=== PATIENT | male | born 1980 ===

== ENCOUNTER 2017-01-14 20:45 | Observation (INO) | payer BC ==
[2017-01-14] MEDS ORDERED: Iohexol 240 (50 ml) PO ONE (22:14)
[2017-01-14] MEDS ORDERED: Sodium Chloride 0.9% 1,000 ML IV STA (22:16)
--- NOTE | 2017-01-14 22:29 | ED PDOC ---
HPI: Abdomen Time Seen by Provider: 01/14/17 21:18 Chief Complaint (Nursing): Abdominal Pain Chief Complaint (Provider): Upper Abdominal Pain History Per: Patient History/Exam Limitations: no limitations Onset/Duration Of Symptoms: Days (3 days) Outside of [place] travel?: No Current Symptoms Are (Timing): Constant Severity: Moderate Location Of Pain/Discomfort: Epigastric Associated Symptoms: Constipation. denies: Fever, Vomiting Alleviating Factors: OTC Meds (Motrin, Omeprazole) Additional Complaint(s): Lucho Whitehead is a 36 year old male, with no pertinent past medical history, who presents to the emergency department for the evaluation of constant, upper abdominal pain, localized to his epigastric region, that the patient has been experiencing over the past 3 days. Patient has been taking Motrin and Omeprazole , which has provided mild relief. Associated constipation is currently present. Denies a fever or vomiting. PMD: Sohail Carey Past Medical History Reviewed: Historical Data, Nursing Documentation, Vital Signs Vital Signs: Last Vital Signs Temp 98.3 F 01/15/17 07:59 Pulse 71 01/15/17 07:59 Resp 18 01/15/17 07:59 BP 153/82 H 01/15/17 07:59 Pulse Ox 98 01/15/17 07:59 - Medical History PMH: HTN - Surgical History Surgical History: No Surg Hx - Family History Family History: States: No Known Family Hx - Social History Current smoker - smoking cessation education provided: No Ex-Smoker (has not smoked in the last 12 months): No Alcohol: None Drugs: Denies - Home Medications Home Medications: Ambulatory Orders Medication Instructions Recorded Ergocalciferol (Vitamin D2) 50,000 unit PO QWK 01/15/17 [Vitamin D2] Omeprazole [Omeprazole] 40 mg PO DAILY 01/15/17 amLODIPine [Norvasc] 5 mg PO DAILY 01/15/17 - Allergies Allergies/Adverse Reactions: Allergies Allergy/AdvReac Type Severity Reaction Status Date / Time No Known Allergies Allergy Verified 01/14/17 21:12 Review of Systems ROS Statement: Except As Marked, All Systems Reviewed And Found Negative Constitutional: Negative for: Fever Gastrointestinal: Positive for: Abdominal Pain (upper), Constipation. Negative for: Vomiting Physical Exam - Reviewed Nursing Documentation Reviewed: Yes Vital Signs Reviewed: Yes - Physical Exam Appears: Positive for: Non-toxic, No Acute Distress, Uncomfortable Head Exam: Positive for: ATRAUMATIC, NORMOCEPHALIC Skin: Positive for: Normal Color, Warm, Dry Cardiovascular/Chest: Positive for: Regular Rate, Rhythm. Negative for: Murmur Respiratory: Positive for: Normal Breath Sounds. Negative for: Respiratory Distress Gastrointestinal/Abdominal: Positive for: Normal Exam, Soft, Tenderness ( epigastric), Distended (mild, upper abdomen) Back: Positive for: Normal Inspection. Negative for: L CVA Tenderness, R CVA Tenderness Neurologic/Psych: Positive for: Alert, Oriented - Laboratory Results Result Diagrams: 01/15/17 07:00 01/14/17 22:40 - ECG O2 Sat by Pulse Oximetry: 100 (RA) Pulse Ox Interpretation: Normal Medical Decision Making Medical Decision Makin:18 Initial Impression: Abdominal pain Differential Diagnoses include, but are not limited to, small bowel obstruction , acute cholecystitis, pancreatitis, gastritis, other conditions are also considered. Initial Plan: * CT Abdomen & Pelvis * Electrocardiogram * Complete Blood Count * Comprehensive Metabolic Panel * Lipase * Iohexol 50 ml PO * Sodium Chloride 0.9% 1,000 ml IV at 1,000 mls/hr * Reevaluation Scribe Attestation: Documented by Vaibhav Ann, acting as a scribe for Carl Zambrano MD. Provider Scribe Attestation: All medical record entries made by the Scribe were at my direction and personally dictated by me. I have reviewed the chart and agree that the record accurately reflects my personal performance of the history, physical exam, medical decision making, and the department course for this patient. I have also personally directed, reviewed, and agree with the discharge instructions and disposition. Disposition - Clinical Impression Clinical Impression: Cholecystitis - Patient ED Disposition Is Patient to be Admitted: Transfer of Care Counseled Patient/Family Regarding: Studies Performed, Diagnosis - Disposition Disposition Time: 00:05 Condition: FAIR Patient Signed Over To: Walter Villafuerte
[2017-01-14] MEDS ORDERED: Iohexol 240 (50 ml) ONE (22:41)
[2017-01-14 22:53] LABS: BASO # 0.1 K/uL (0.0-0.2); BASO % 0.8 % (0.0-2.0); EOS # 0.3 K/uL (0.0-0.7); EOS % 1.9 % (0.0-4.0); HEMATOCRIT 40.9 % (35.0-51.0); LYMPH # 2.8 K/uL (1.0-4.3); LYMPH % 20.2 % (20.0-40.0); MEAN CELL VOLUME 88.5 fl (80.0-94.0); MEAN CORPUSCULAR HEMOGLOBIN 29.6 pg (27.0-31.0); MEAN CORPUSCULAR HGB CONC 33.5 g/dL (33.0-37.0); MEAN PLATELET VOLUME 9.3 fl (7.2-11.7); MONO # 0.9 K/uL (0.0-0.8); MONO % 6.3 % (0.0-10.0); NEUT # 9.9 K/uL (1.8-7.0); NEUT % 70.8 % (50.0-75.0); NRBC % 0.1 % (0.0-0.0); RED CELL DISTRIBUTION WIDTH 12.7 % (11.5-14.5)
[2017-01-14 23:02] LABS: ALB/GLOB RATIO 1.3 (1.0-2.1); ALKALINE PHOSPHATASE 69 U/L (38-126); ALT/SGPT 48 U/L (21-72); AST/SGOT 51 U/L (17-59); BILIRUBIN,TOTAL 0.5 mg/dl (0.2-1.3); BLOOD UREA NITROGEN 10 mg/dl (9-20); CALCIUM 9.5 mg/dL (8.4-10.2); CARBON DIOXIDE 26 mmol/L (22-30); CHLORIDE 103 mmol/L (98-107); GFR AFRICAN-AMERICAN > 60; GLUCOSE,RANDOM 95 mg/dL (75-110); LIPASE 43 U/L (23-300); SODIUM 142 mmol/l (132-148); TOTAL PROTEIN 8.5 G/DL (6.3-8.2)
--- NOTE | 2017-01-15 00:48 | ED PDOC ---
- Laboratory Results Result Diagrams: 01/14/17 22:40 01/14/17 22:40 - ECG O2 Sat by Pulse Oximetry: 100 (RA) Pulse Ox Interpretation: Normal Medical Decision Making Medical Decision Making: Time:1205 Transfer of Care from Carl Zambrano M.D. pending Cat Scan 0116:Abdomen/Pelvis CT results reviewed by me, c/w acute cholecystitis 0139: Abdominal Ultrasound reviewed by me, c/w acute cholecystitis 0318: Re-Check. PT was feeling better than when he arrived to the ED but the pain is now starting to return 0320:Consulted with Bridges Supervisor who will evaluate the PT in the morning 0323: Consulted with Dr. Mihir Plummer (Head Rigger) who will accept patient for admission Scribe Attestation: Documented by Aniya Shea, acting as a scribe for Walter Villafuerte M.D., MD Scribe Attestation: All medical record entries made by the Scribe were at my direction and personally dictated by me. I have reviewed the chart and agree that the record accurately reflects my personal performance of the history, physical exam, medical decision making, and the department course for this patient. I have also personally directed, reviewed, and agree with the discharge instructions and disposition. Disposition Discussed With : Mihir Plummer Comment: Will accept patient for admission Doctor Will See Patient In The: Hospital - Clinical Impression Clinical Impression: Cholecystitis - POA Present On Arrival: None - Disposition Disposition: Hospitalized as Observation Patient Disposition Time: 03:30 Condition: STABLE - PA / [employer] / Resident Statement / has reviewed & agrees with the documentation as recorded.
[2017-01-15] MEDS ORDERED: Iohexol 300 100 ML IJ ONE (00:56)
[2017-01-15] MEDS ORDERED: Sodium Chloride 0.9% 50 ML IV ONE (00:57)
[2017-01-15] MEDS ORDERED: Piperacillin/Tazobact 3.375 gm Inj IVPB ONE (03:13)
[2017-01-15] MEDS ORDERED: Piperacillin/Tazobact 3.375 GM in Sodium Chloride 0.9% 100 ML IVPB STA (03:16)
[2017-01-15] MEDS ORDERED: Sodium Chloride 0.9% 1,000 ML IV STA (03:16)
[2017-01-15 05:39] LABS: RBC URINE 2 /hpf (0-3); URINE BILIRUBIN NEGATIVE (NEGATIVE); URINE BLOOD NEGATIVE (NEGATIVE); URINE COLOR YELLOW (YELLOW); URINE GLUCOSE (UA) NEG (Normal); URINE KETONE NEGATIVE (NEGATIVE); URINE LEUKOCYTE ESTERASE NEG Leu/uL (Negative); URINE PROTEIN NEGATIVE (NEGATIVE); WBC URINE 1 /hpf (0-5)
[2017-01-15] MEDS ORDERED: Lactated Ringer's 1,000 ML IV SCH ×2 (05:45→14:15)
[2017-01-15 06:15] LABS: PARTIAL THROMBOPLASTIN TIME 32.6 Seconds (25.6-37.1)
[2017-01-15] MEDS: Dextrose 5%/0.45% NS 1,000 ML IV SCH ×2 (06:44→17:00)
[2017-01-15 08:21] LABS: HEMATOCRIT 37.1 % (35.0-51.0); MEAN CELL VOLUME 88.1 fl (80.0-94.0); MEAN CORPUSCULAR HGB CONC 34.1 g/dL (33.0-37.0); RED CELL DISTRIBUTION WIDTH 12.8 % (11.5-14.5); WHITE BLOOD COUNT 10.7 K/uL (4.8-10.8)
--- NOTE | 2017-01-15 08:52 | CT ---
PROCEDURE: CT Abdomen and Pelvis with contrast HISTORY: abdominal pain COMPARISON: None. TECHNIQUE: Contrast dose: 95 mL Omnipaque 300 Radiation dose: Total exam DLP = 1039.65 mGy-cm. This CT exam was performed using one or more of the following dose reduction techniques: Automated exposure control, adjustment of the mA and/or kV according to patient size, and/or use of iterative reconstruction technique. FINDINGS: LOWER THORAX: Unremarkable. LIVER: Unremarkable. No mass or biliary ductal dilatation. GALLBLADDER AND BILE DUCTS: Cholelithiasis. Mural thickening. Questionable pericholecystic fat stranding. Findings are concerning for cholecystitis but not diagnostic. No evidence of choledocholithiasis. PANCREAS: Unremarkable. No gross lesion or ductal dilatation. SPLEEN: Unremarkable. ADRENALS: Unremarkable. No mass. KIDNEYS AND URETERS: Unremarkable. No hydronephrosis. No solid mass. VASCULATURE: Unremarkable. No aortic aneurysm. BOWEL: Unremarkable. No obstruction. No gross mural thickening. APPENDIX: Normal appendix. PERITONEUM: Trace fluid extending from gallbladder about the lateral aspect of the 2nd duodenum. Nonspecific. Best demonstrated on series 601, image 65). Bilateral inguinal hernias containing only mesenteric fat no bowel. LYMPH NODES: Unremarkable. No enlarged lymph nodes. BLADDER: Unremarkable. REPRODUCTIVE: Normal prostate BONES: No acute fracture. OTHER FINDINGS: None. IMPRESSION: Cholelithiasis with mural thickening of the gallbladder and pericholecystic fluid/stranding. Findings concerning for acute cholecystitis. No other significant abnormality is identified. Preliminary interpretation of this examination was reported by [facility] at 1:32 a.m. on 01/15/2017. There is concurrence of this report with the preliminary interpretation.
--- NOTE | 2017-01-15 08:59 | US ---
HISTORY: r/o cholecystitis COMPARISON: CT abdomen/ pelvis 01/15/2017 TECHNIQUE: Sonographic evaluation of the right upper quadrant of the abdomen. FINDINGS: LIVER: Measures 16.1 cm in length. Diffusely increased echogenicity of the liver parenchyma. Consistent with fatty infiltration. No focal mass. No biliary dilatation. Smooth contour. GALLBLADDER: Cholelithiasis. Thickened gallbladder wall up to 8 mm. No pericholecystic fluid appreciated. Negative sonographic Mitchell sign. Findings are equivocal for cholecystitis in the absence of a positive sonographic Mitchell sign. COMMON BILE DUCT: Measures 4 mm. No stones. No dilatation. PANCREAS: Could not be visualized due to overlying bowel gas obscuring the region of interest. RIGHT KIDNEY: Measures 10.3 cm in length. Normal echogenicity. No calculus, mass, or hydronephrosis. AORTA: No aneurysmal dilatation. IVC: Unremarkable. OTHER FINDINGS: None . IMPRESSION: Cholelithiasis and thickened gallbladder wall. Negative sonographic Mitchell sign. Findings are equivocal for cholecystitis. No biliary obstruction. Fatty infiltration of the liver. Otherwise unremarkable. Preliminary interpretation of this examination was reported by [facility] at 3:06 a.m. on 01/15/2017. There is concurrence of this report with the preliminary interpretation.
[2017-01-15] MEDS: Piperacillin/Tazobact 3.375 GM in Sodium Chloride 0.9% 100 ML IVPB SCH ×3 (09:09→21:32)
--- NOTE | 2017-01-15 09:19 | CP.PCM.CON ---
History of Present Illness - History of Present Illness History of Present Illness: 36 year old male presents with one week of epigsatric abdominal pain, not improved with motrin or maalox. Saw PMD who prescribed PPI, but was unable to tolerate pain and came to ER. Pain partially relieved with medication, but recurs; denies vomiting, diarrhea, sick contacts Review of Systems - Review of Systems All systems: reviewed and no additional remarkable complaints except - Constitutional Constitutional: absent: As Per HPI, Anorexia, Chills, Daytime Sleepiness, Excessive Sweating, Fatigue, Fever, Frequent Falls, Headache, Increased Appetite , Lethargy, Malaise, Night Sweats, Snoring, Sleep Apnea, Weight Gain, Weight Loss, Weakness, Other - Cardiovascular Cardiovascular: absent: Chest Pain, Dyspnea, Irregular Heart Rhythm - Respiratory Respiratory: absent: Cough, Dyspnea - Gastrointestinal Gastrointestinal: Abdominal Pain. absent: Coffee Ground Emesis, Loose Stools - Genitourinary Genitourinary: absent: Change in Urinary Stream, Difficulty Urinating - Musculoskeletal Musculoskeletal: absent: Arthralgias, Deformity, Limited Range of Motion - Integumentary Integumentary: absent: Pruritus, Rash, Jaundice Past Patient History - Tetanus Immunizations Tetanus Immunization: Unknown - Past Medical History & Family History Past Medical History?: Yes - Past Social History Smoking Status: Never Smoked Alcohol: Occasional Drugs: Denies - CARDIAC Hx Cardiac Disorders: Yes Hx Hypertension: Yes (recent diagnosis from PCP x 2 days) - PULMONARY Hx Respiratory Disorders: No - NEUROLOGICAL Hx Neurological Disorder: No - HEENT Hx HEENT Problems: No - RENAL Hx Chronic Kidney Disease: No - ENDOCRINE/METABOLIC Hx Endocrine Disorders: No - HEMATOLOGICAL/ONCOLOGICAL Hx Blood Disorders: No - INTEGUMENTARY Hx Dermatological Problems: No - MUSCULOSKELETAL/RHEUMATOLOGICAL Hx Musculoskeletal Disorders: No Hx Falls: No - GASTROINTESTINAL Hx Gastrointestinal Disorders: No - GENITOURINARY/GYNECOLOGICAL Hx Genitourinary Disorders: No - PSYCHIATRIC Hx Psychophysiologic Disorder: No Hx Substance Use: No - SURGICAL HISTORY Hx Surgeries: No - ANESTHESIA Hx Anesthesia: No Hx Anesthesia Reactions: No Has any member of the family had a problem w/ anesthesia?: No Meds Allergies/Adverse Reactions: Allergies Allergy/AdvReac Type Severity Reaction Status Date / Time No Known Allergies Allergy Verified 01/14/17 21:12 - Medications Medications: Current Medications Piperacillin Sod/Tazobactam (Sod 3.375 gm/ Sodium Chloride) 100 mls @ 100 mls/ hr IVPB Q6 [facility] Last Admin: 01/15/17 09:09 Dose: 100 mls/hr Dextrose/Sodium Chloride (Dextrose 5%/0.45% Ns 1000 Ml) 1,000 mls @ 100 mls/hr IV .Q10H [facility] Stop: 01/16/17 05:53 Last Admin: 01/15/17 06:44 Dose: 100 mls/hr Morphine Sulfate (Morphine) 2 mg IVP Q4 PRN PRN Reason: Pain, moderate (4-7) Morphine Sulfate (Morphine) 4 mg IVP Q4 PRN PRN Reason: Pain, severe (8-10) Last Admin: 01/15/17 06:18 Dose: 4 mg Ondansetron HCl (Zofran Inj) 4 mg IVP Q4 PRN PRN Reason: Nausea/Vomiting Physical Exam - Constitutional Additional comments: Uncomfortable with abdominal pain - Head Exam Head Exam: ATRAUMATIC, NORMOCEPHALIC - Eye Exam Eye Exam: Normal appearance. absent: Scleral icterus Pupil Exam: PERRL - ENT Exam ENT Exam: Mucous Membranes Moist - Neck Exam Neck exam: Positive for: Full Rom. Negative for: Lymphadenopathy - Respiratory Exam Respiratory Exam: NORMAL BREATHING PATTERN - Cardiovascular Exam Cardiovascular Exam: REGULAR RHYTHM - GI/Abdominal Exam GI & Abdominal Exam: Firm, Normal Bowel Sounds. absent: Distended Additional comments: Epigastric tenderness, no mass - Rectal Exam Rectal Exam: NORMAL INSPECTION - Exam Exam: NORMAL INSPECTION - Extremities Exam Extremities exam: Positive for: full ROM, normal inspection - Neurological Exam Neurological exam: Alert, Oriented x3 Results - Vital Signs Recent Vital Signs: Last Vital Signs Temp 98.3 F 01/15/17 07:59 Pulse 71 01/15/17 07:59 Resp 18 01/15/17 07:59 BP 153/82 H 01/15/17 07:59 Pulse Ox 98 01/15/17 07:59 - Labs Result Diagrams: 01/15/17 07:00 01/14/17 22:40 Labs: Laboratory Results - last 24 hr 01/15/17 01/15/17 01/15/17 04:01 04:32 05:20 WBC RBC Hgb Hct MCV MCH MCHC RDW Plt Count PT 11.5 INR 1.0 APTT 32.6 Urine Color Urine Clarity Urine pH Ur Specific [place] Urine Protein Urine Glucose (UA) Urine Ketones Urine Blood Urine Nitrate Urine Bilirubin Urine Urobilinogen Ur Leukocyte Esterase Urine RBC (Auto) Urine Microscopic WBC Ur Squamous Epith Cells Blood Type A POSITIVE Blood Type Confirm A POSITIVE Antibody Screen Negative BBK History Checked No verified bt 01/15/17 01/15/17 05:22 07:00 WBC 10.7 RBC 4.21 L Hgb 12.6 Hct 37.1 MCV 88.1 MCH 30.0 MCHC 34.1 RDW 12.8 Plt Count 231 PT INR APTT Urine Color Yellow Urine Clarity Clear Urine pH 6.0 Ur Specific [place] 1.010 Urine Protein Negative Urine Glucose (UA) Neg Urine Ketones Negative Urine Blood Negative Urine Nitrate Negative Urine Bilirubin Negative Urine Urobilinogen 4.0 Ur Leukocyte Esterase Neg Urine RBC (Auto) 2 Urine Microscopic WBC 1 Ur Squamous Epith Cells 1 Blood Type Blood Type Confirm Antibody Screen BBK History Checked - Imaging and Cardiology CT scan - abdomen Additional comment: thickened gallbladder with stones, possible pericholecystic fluid US - abdomen Status: Report reviewed by me (GB wall thickening, cholelithiasis; CBD 4mm) Assessment & Plan (1) Cholecystitis Status: Acute Priority: High Onset Date: ~01/10/17 Comment: Not responding to analgesics, pain recurs after short interval. Will schedule for laparoscopic cholecystectomy today. - Date & Time Date: 01/15/17 Time: 09:26
[2017-01-15] MEDS ORDERED: Piperacillin/Tazobact 3.375 GM in Sodium Chloride 0.9% 100 ML IVPB SCH (10:00)
[2017-01-15] MEDS ORDERED: Propofol 10 mg/ml Inj (20 ML) ONE (12:35)
[2017-01-15] MEDS ORDERED: Midazolam 2 MG/2 ML VIAL ONE (12:36)
[2017-01-15] MEDS ORDERED: Succinylcholine 200 mg/10 ml Inj IV ONE (12:36)
[2017-01-15] MEDS ORDERED: Rocuronium 10 mg/ml (5 ml) ONE (12:37)
[2017-01-15] MEDS ORDERED: Lidocaine Hydrochloride 5 ML INJ ONE ×2 (12:38)
[2017-01-15] MEDS ORDERED: Lactated Ringer's 1,000 ML IV ONE (12:45)
[2017-01-15] MEDS ORDERED: Neostigmine Methylsulfate 3mg/3ml Syringe IV ONE (13:29)
--- NOTE | 2017-01-15 13:36 | RAD ---
HISTORY: cholecystitis COMPARISON: No prior. TECHNIQUE: Chest PA and lateral FINDINGS: LUNGS: No active pulmonary disease. PLEURA: No significant pleural effusion identified. No pneumothorax apparent. CARDIOVASCULAR: Normal. OSSEOUS STRUCTURES: No significant abnormalities. VISUALIZED UPPER ABDOMEN: Normal. OTHER FINDINGS: None. IMPRESSION: No active disease.
[2017-01-15] MEDS ORDERED: Lactated Ringer's 500 ML IV ONE (14:00)
--- NOTE | 2017-01-15 14:16 | PCM.SURG1 ---
Surgeon's Initial Post Op Note - Surgeon's Notes Surgeon: Dr. Jennifer Madrid Diet Counselor: Radha Joe, PGY1 Pre-Operative Diagnosis: Acute cholecystitis Operative Findings: Same Post-Operative Diagnosis: same Operation Performed: Laparoscopic cholecystectomy Specimen/Specimens Removed: gall bladder Estimated Blood Loss: EBL {In ML}: 20 Date of Surgery/Procedure: 01/15/17 Time of Surgery/Procedure: 12:45
[2017-01-15] MEDS: HYDROmorphone 0.5 mg/0.5 ml ISec IVP PRN ×2 (15:30→15:45)
--- NOTE | 2017-01-15 15:30 | CP.PCM.HP ---
History of Present Illness - History of Present Illness History of Present Illness: CC: Abdominal pain. 36 y/o M, admitted to [facility] after evaluation of Abdominal pain, onset DOA. Pt came to hospital c/o of severe upper abdomen pain epigastric area, pain was constant, sharp, aching type, severe intensity 9:10 , Pt taking analgesic Rx by his PMD with no relief. Worsening symptom: Constipation. Pt with recent PMHx: HTN. Pt denied: Fever, chills, n/v/d, dizziness, LOC, CP, SOB, cough, urinary symptoms, sick contact, recent travel. CT abd/Pelv showed: Cholelithiasis, thickening of the gallbladder and pericholecystic fluid, finding concern for acute Cholecystitis EKG: Sinus tachycardia. Abdominal .U-S showed: Cholelithiasis. Present on Admission - Present on Admission Any Indicators Present on Admission: No Review of Systems - Constitutional Constitutional: Other (negative) - EENT Eyes: Other (negative) Ears: Other (negative) Nose/Mouth/Throat: Other (negative) - Cardiovascular Cardiovascular: Other (negative) - Respiratory Respiratory: Other (negative) - Gastrointestinal Gastrointestinal: Abdominal Pain, Constipation - Genitourinary Genitourinary: Other (negative) - Musculoskeletal Musculoskeletal: Other (negative) - Integumentary Integumentary: Other (negative) - Neurological Neurological: Other (negative) - Psychiatric Psychiatric: Other (negative) - Endocrine Endocrine: Other (negative) - Hematologic/Lymphatic Hematologic: Other (negative) Past Patient History - Tetanus Immunizations Tetanus Immunization: Unknown - Past Medical History & Family History Past Medical History?: Yes Pertinent Family History: Unknown - Past Social History Alcohol: None Drugs: Denies Home Situation {Lives}: Alone - CARDIAC Hx Cardiac Disorders: Yes Hx Hypertension: Yes - PULMONARY Hx Respiratory Disorders: No - NEUROLOGICAL Hx Neurological Disorder: No - HEENT Hx HEENT Problems: No - RENAL Hx Chronic Kidney Disease: No - ENDOCRINE/METABOLIC Hx Endocrine Disorders: No - HEMATOLOGICAL/ONCOLOGICAL Hx Blood Disorders: No - INTEGUMENTARY Hx Dermatological Problems: No - MUSCULOSKELETAL/RHEUMATOLOGICAL Hx Musculoskeletal Disorders: No Hx Falls: No - GASTROINTESTINAL Hx Gastrointestinal Disorders: No - GENITOURINARY/GYNECOLOGICAL Hx Genitourinary Disorders: No - PSYCHIATRIC Hx Psychophysiologic Disorder: No Hx Substance Use: No - SURGICAL HISTORY Hx Surgeries: No - ANESTHESIA Hx Anesthesia: No Hx Anesthesia Reactions: No Has any member of the family had a problem w/ anesthesia?: No Meds Allergies/Adverse Reactions: Allergies Allergy/AdvReac Type Severity Reaction Status Date / Time No Known Allergies Allergy Verified 01/14/17 21:12 Physical Exam - Constitutional Appears: In Acute Distress (mild) - Head Exam Head Exam: NORMAL INSPECTION - Eye Exam Eye Exam: PERRL - ENT Exam ENT Exam: Normal Oropharynx - Neck Exam Neck exam: Positive for: Normal Inspection - Respiratory Exam Respiratory Exam: NORMAL BREATHING PATTERN - Cardiovascular Exam Cardiovascular Exam: REGULAR RHYTHM - GI/Abdominal Exam GI & Abdominal Exam: Normal Bowel Sounds, Tenderness (epigastric area). absent : Distended, Guarding, Rebound - Extremities Exam Extremities exam: Positive for: normal inspection - Back Exam Back exam: NORMAL INSPECTION - Neurological Exam Neurological exam: Alert, Oriented x3 Additional comments: No motor sensory deficit. - Psychiatric Exam Psychiatric exam: Normal Mood - Skin Skin Exam: Normal Color, Warm Results - Vital Signs Recent Vital Signs: Last Vital Signs Temp 97.1 F L 01/15/17 14:15 Pulse 65 01/15/17 15:15 Resp 18 01/15/17 15:15 BP 165/88 H 01/15/17 15:15 Pulse Ox 100 01/15/17 15:15 reviewed Nelson.[email or web address] - Labs Result Diagrams: 01/15/17 07:00 01/14/17 22:40 Labs: Laboratory Results - last 24 hr 01/15/17 01/15/17 01/15/17 04:01 04:32 05:20 WBC RBC Hgb Hct MCV MCH MCHC RDW Plt Count PT 11.5 INR 1.0 APTT 32.6 Urine Color Urine Clarity Urine pH Ur Specific [place] Urine Protein Urine Glucose (UA) Urine Ketones Urine Blood Urine Nitrate Urine Bilirubin Urine Urobilinogen Ur Leukocyte Esterase Urine RBC (Auto) Urine Microscopic WBC Ur Squamous Epith Cells Blood Type A POSITIVE Blood Type Confirm A POSITIVE Antibody Screen Negative BBK History Checked No verified bt 01/15/17 01/15/17 05:22 07:00 WBC 10.7 RBC 4.21 L Hgb 12.6 Hct 37.1 MCV 88.1 MCH 30.0 MCHC 34.1 RDW 12.8 Plt Count 231 PT INR APTT Urine Color Yellow Urine Clarity Clear Urine pH 6.0 Ur Specific [place] 1.010 Urine Protein Negative Urine Glucose (UA) Neg Urine Ketones Negative Urine Blood Negative Urine Nitrate Negative Urine Bilirubin Negative Urine Urobilinogen 4.0 Ur Leukocyte Esterase Neg Urine RBC (Auto) 2 Urine Microscopic WBC 1 Ur Squamous Epith Cells 1 Blood Type Blood Type Confirm Antibody Screen BBK History Checked reviewed J.P. - EKG Data EKG comments: Reviewed J.P. - Imaging and Cardiology US - abdomen Status: Report reviewed by me (MandeepP.) CT scan - pelvis Status: Report reviewed by me (Nelson.P.) CT scan - abdomen Status: Report reviewed by me (Nelson.P.) Assessment & Plan (1) Acute cholecystitis Status: Acute Priority: High - Assessment and Plan (Free Text) Plan: For Senia Lap today. - Date & Time Date: 01/15/17 Time: 11:55
--- NOTE | 2017-01-15 17:00 | CARD ---
APPROVED REPORT EKG Measurement Heart [id number] [id number] <Conclusion> Sinus bradycardia Otherwise normal ECG
--- NOTE | 2017-01-15 19:45 | OP ---
PROCEDURE DATE: 01/15/2017 SURGEON: Dr. Madrid. PHLEBOTOMY MANAGER: Dr. Joe. ANESTHESIA: General, Dr. Lozano. PREOPERATIVE DIAGNOSIS: Acute cholecystitis. POSTOPERATIVE DIAGNOSIS: Acute cholecystitis. PROCEDURE: Laparoscopic cholecystectomy. DESCRIPTION OF OPERATION: With the patient in the supine position under adequate general anesthesia, the abdomen was prepped and draped in the usual sterile manner. Veress needle puncture was performe d in the umbilicus with insufflation to 15 cm water pressure of CO2 and a 10 mm laparoscopic trocar w as inserted via an infraumbilical incision. Under direct vision, additional trocars were inserted in the epigastrium and right costal margin. The gallbladder was visualized. It was edematous and tens christie distended. The gallbladder was aspirated of approximately 20 mL of clear brown bile allowing the fundus of the gallbladder to be grasped and elevated. A few omental adhesions to the peritoneal emily face were cleared and the infundibular area was grasped and retracted laterally. There was marked in flammatory thickening of the peritoneum overlying the gallbladder and this was taken down to expose t he area of the cystic duct. The patient was noted to have a moderately large artery running beneath the gallbladder towards the right lobe of the liver, this was preserved. The cystic duct was identif ied, as was the cystic artery traversing Calot's triangle and both these structures were dissected an d cleared to allow a view of safety. The cystic duct was triply clipped and divided close to the gal lbladder. The cystic artery was similarly dissected and triply clipped and divided and the gallbladd er was dissected free of the liver bed using the electrocautery. A high branch of the artery, which was coming off the right side of the gallbladder was triply clipped and divided as it traversed the p eritoneal covering into the gallbladder. The liver bed was inspected for hemostasis and the dissecti on was completed. The liver bed was markedly edematous consistent with acute cholecystitis. The gal lbladder was placed in a specimen retrieval bag and removed via the umbilical port site. It was note d to be packed with multiple stones. The right upper quadrant was irrigated and suctioned. The pneu moperitoneum was released and the trocars were removed. The umbilical port site was closed with a fi [id number] suture of 0 Vicryl. All incisions were closed with 4-0 Monocryl subcuticular sutures a nd Steri-Strips. Dry sterile dressings were applied. The patient tolerated the procedure well and t ransferred to recovery room in stable condition. Estimated blood loss for the procedure was 20 mL. Bradley Madrid MD cc: 58 TT: 01/15/2017 19:44:51 lavon
[2017-01-16] MEDS: Oxycodone/Acetaminophen 5/325 mg Tab PO PRN ×3 (03:33→14:09)
[2017-01-16 05:23] VITALS: RESP 18
--- NOTE | 2017-01-16 08:58 | CP.PCM.PN ---
Subjective - Date & Time of Evaluation Date of Evaluation: 01/16/17 Time of Evaluation: 08:53 - Subjective Subjective: General Surgery - Dr. Madrid Pt S&E. NAEO. Pt complains of mild pain in the RUQ near incisions, no other complaints. Pt states he has been OOb and ambulating. HE tolerated regular diet last night. No F/C, Sob/Cp. Objective - Vital Signs/Intake and Output Vital Signs (last 24 hours): Temp Pulse Resp BP Pulse Ox 98.3 F 82 18 159/84 H 92 L 01/16/17 08:00 01/16/17 08:00 01/16/17 08:00 01/16/17 08:00 01/16/17 08:00 - Medications Medications: Current Medications Docusate Sodium (Colace) 100 mg PO BID REJI Enoxaparin Sodium (Lovenox) 40 mg SC DAILY REJI PRN Reason: Protocol Famotidine (Pepcid) 40 mg PO HS REJI Last Admin: 01/15/17 21:32 Dose: 40 mg Hydromorphone HCl (Dilaudid) 0.5 mg IVP Q15M PRN PRN Reason: Pain, moderate (4-7) Stop: 01/16/17 14:16 Last Admin: 01/15/17 15:45 Dose: 0.5 mg Ondansetron HCl (Zofran Inj) 4 mg IVP Q4 PRN PRN Reason: Nausea/Vomiting Oxycodone/Acetaminophen (Percocet 5/325 Mg Tab) 1 tab PO Q6 PRN PRN Reason: Pain, moderate (4-7) Stop: 01/19/17 02:01 Last Admin: 01/16/17 03:33 Dose: 1 tab - Labs Labs: 01/15/17 07:00 PT 11.5 Seconds (9.8-13.1) 01/15/17 04:32 INR 1.0 (0.9-1.2) 01/15/17 04:32 APTT 32.6 Seconds (25.6-37.1) 01/15/17 04:32 - Constitutional Appears: No Acute Distress - Head Exam Head Exam: ATRAUMATIC, NORMAL INSPECTION, NORMOCEPHALIC - Eye Exam Eye Exam: Normal appearance. absent: Scleral icterus - Respiratory Exam Respiratory Exam: Clear to Ausculation Bilateral, NORMAL BREATHING PATTERN - Cardiovascular Exam Cardiovascular Exam: REGULAR RHYTHM - GI/Abdominal Exam GI & Abdominal Exam: Soft, Tenderness (approopriately). absent: Distended, Guarding, Rigid, Rebound Additional comments: incisions C/D/I , mild serosanguinous drainage to epigastric incision - Neurological Exam Neurological Exam: Alert, Oriented x3 - Psychiatric Exam Psychiatric exam: Normal Affect, Normal Mood - Skin Skin Exam: Dry, Intact Assessment and Plan - Assessment and Plan (Free Text) Assessment: 36 yo M s/p lap cholecystectomy POD #1 -Tolerating regular diet and ambulating -Clear for discharge home from surgical standpoint -Continue Percocet PRN for pain -Pt may remove dressings tomorrow and he may shower -No heavy lifting >10lbs for the next 4 weeks -Make appt to see Dr. madrid in office in [address] Julius Shine PGY2
[2017-01-16] MEDS ORDERED: Enoxaparin 40 mg Syringe SC SCH (09:00)
[2017-01-16 10:51] LABS: BASO # 0.1 K/uL (0.0-0.2); BASO % 0.7 % (0.0-2.0); EOS # 0.1 K/uL (0.0-0.7); EOS % 0.8 % (0.0-4.0); HEMATOCRIT 36.4 % (35.0-51.0); LYMPH # 2.2 K/uL (1.0-4.3); LYMPH % 16.9 % (20.0-40.0); MEAN CELL VOLUME 87.1 fl (80.0-94.0); MEAN CORPUSCULAR HEMOGLOBIN 30.2 pg (27.0-31.0); MEAN CORPUSCULAR HGB CONC 34.6 g/dL (33.0-37.0); MEAN PLATELET VOLUME 9.2 fl (7.2-11.7); MONO # 1.1 K/uL (0.0-0.8); MONO % 8.6 % (0.0-10.0); NEUT # 9.6 K/uL (1.8-7.0); RED CELL DISTRIBUTION WIDTH 12.4 % (11.5-14.5); WHITE BLOOD COUNT 13.1 K/uL (4.8-10.8)
[2017-01-16 11:09] LABS: ALB/GLOB RATIO 1.3 (1.0-2.1); ALKALINE PHOSPHATASE 71 U/L (38-126); ALT/SGPT 212 U/L (21-72); AST/SGOT 112 U/L (17-59); BILIRUBIN,TOTAL 0.8 mg/dl (0.2-1.3); BLOOD UREA NITROGEN 8 mg/dl (9-20); CALCIUM 8.8 mg/dL (8.4-10.2); CARBON DIOXIDE 27 mmol/L (22-30); CHLORIDE 99 mmol/L (98-107); GFR AFRICAN-AMERICAN > 60; GLUCOSE,RANDOM 107 mg/dL (75-110); POTASSIUM 3.7 MMOL/L (3.6-5.0); SODIUM 136 mmol/l (132-148); TOTAL PROTEIN 7.2 G/DL (6.3-8.2)
[2017-01-16 12:44] VITALS: BP 129/77; PULSE 97; TEMP 98.8; O2SAT 95
--- NOTE | 2017-01-16 17:50 | CP.PCM.PN ---
Subjective - Date & Time of Evaluation Date of Evaluation: 01/16/17 Time of Evaluation: 11:15 - Subjective Subjective: F/U S/P Lap Senia Pt with no c/o, minimal post-surgical pain. Objective - Vital Signs/Intake and Output Vital Signs (last 24 hours): Temp Pulse Resp BP Pulse Ox 98.8 F 97 H 18 129/77 95 01/16/17 12:00 01/16/17 12:00 01/16/17 12:00 01/16/17 12:00 01/16/17 12:00 - Labs Labs: 01/16/17 10:42 01/16/17 10:42 PT 11.5 Seconds (9.8-13.1) 01/15/17 04:32 INR 1.0 (0.9-1.2) 01/15/17 04:32 APTT 32.6 Seconds (25.6-37.1) 01/15/17 04:32 - Constitutional Appears: No Acute Distress - Head Exam Head Exam: NORMAL INSPECTION - Eye Exam Eye Exam: PERRL - ENT Exam ENT Exam: Normal Exam - Neck Exam Neck Exam: Normal Inspection - Respiratory Exam Respiratory Exam: NORMAL BREATHING PATTERN - Cardiovascular Exam Cardiovascular Exam: REGULAR RHYTHM - GI/Abdominal Exam GI & Abdominal Exam: Distended (Minimal post surgical incision area.), Soft, Normal Bowel Sounds. absent: Tenderness - Extremities Exam Extremities Exam: Full ROM - Back Exam Back Exam: NORMAL INSPECTION - Neurological Exam Neurological Exam: Alert, Oriented x3. absent: Motor Sensory Deficit - Psychiatric Exam Psychiatric exam: Normal Mood - Skin Skin Exam: Warm Assessment and Plan (1) Acute cholecystitis Status: Resolved (2) S/P laparoscopic cholecystectomy Status: Acute - Assessment and Plan (Free Text) Plan: Cleared by Surgeon on consult. Pt improved and stable to be discharged, f/u with PMD and Surgeon as out Pt.
== END 2017-01-16 14:37 | disposition home or self-care (01) ==
LOC: H.ER 20:45 → H.ERHOLD 01-15 03:22 → H.TEL 01-15 05:34
PROVIDERS: ADMIT Internal Medicine Pulmonary Disease; ATTEND Internal Medicine Pulmonary Disease
DX: K80.12 Calculus of gallbladder with acute and chronic cholecystitis without obstruction (principal); I10 Essential (primary) hypertension; K59.00 Constipation, unspecified; Z79.899 Other long term (current) drug therapy
CPT/HCPCS: 36415; 47562; 71020; 74177; 76705; 80053; 81003; 83690; 85025; 85027; 85610; 85730; 86850; 86900; 87040; 88304; 93005; 96361; 96365; 96375; 96376; 99283; G0378; J0330; J1170; J1650; J1885; J2250; J2270; J2405; J2543; J2704; J2710; J3010; J7040; J7042; J7120; Q9966; Q9967